=== PATIENT | female | born 1960 | race Caucasian/White ===

== ENCOUNTER 2020-04-24 03:45 | Inpatient (IN) | payer OTHER ==
[~2020-04-24] VITALS: Ht 170.2 cm; Wt 88.1 kg
[2020-04-24] MEDS ORDERED: METOPROLOL TART25 MG PO (04:24)
[2020-04-24] MEDS ORDERED: SERTRALINE HCL100 MG PO (04:25)
[2020-04-24] MEDS ORDERED: OLANZAPINE5 M1 PO (04:25)
--- NOTE | 2020-04-24 04:33 | NUR ---
Patient arrived from [facility]. Patient has a history of schizophrenia, anxiety, and depression. Patient is not a voluntary admission. Affidavit for 96 hour hold is in the chart. Affidavit states that patient is a danger to self. A second affidavit states that the patient was trying to cut her hair with kitchen knives and walked 5 miles in 90 degree weather and became confused and disoriented. Patient states that she does not want to be here. Patients assessment shows no signs of acute distress. Patients vital signs show hypertension 160/99, temp 97.8, pulse 104, SpO2 95% and respiratory rate 19. We will continue to monitor per hospital protocol.
[2020-04-24 05:40] VITALS: BP 160/99
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
--- NOTE | 2020-04-24 18:20 | NUR ---
PT ANSWERS ORIENTATION QUESTIONS APPROPRIATELY. SLOW TO ANSWER. PT APPEARS TO HAVE DIFFICULTY PROCESSING INFORMATION. PT ALSO WILL PAUSE WHILE SPEAKING AND LOOK TO SIDE IF LISTENING TO SOMEONE. DENIES HALLUCINATIONS. PT AMBULATES WITH STEADY BALANCED GAIT. PT IN ROOM FOR MOST OF DAY. OUT OF ROOM FOR BREAKFAST, DINNER, AND AFTER DINNER THIS EVENING. REFUSED LUNCH TODAY. PT DOES NOT INTERACT WITH OTHER PATIENTS OR STAFF, DID NOT PARTICIPATE IN GROUP TODAY.
[2020-04-24 19:54] VITALS: BP 148/89
--- NOTE | 2020-04-25 05:03 | NUR ---
Assumed care of pt @ 1900. pt calm et cooperative with pleasant demeanor this shift. Took medications whole without difficulty. Ambulates the halls ad ruma with steady gait. VSWNL. Health assessment with no abnormalities noted at present time. EKG et Troponin level done this shift per physician order. Seen by DIETITIAN hospitalist this shift. Socialized with peers in dayroom until HS. Denies SI/HI at present time. Currently resting in bed with eyes closed. Will continue to monitor per protocol.
[2020-04-25 09:13] VITALS: BP 147/88
--- NOTE | 2020-04-25 11:14 | NUR ---
Assumed care 0700. Patient alert, oriented x 4. Goal is to read magazine in dayroom. No complaints. She wants to know about the EKG irregularity and if shewill need an x-ray. (echo has been ordered.) Denies complaints of pain. Denies SI/HI/AH/VH. Very conversant with staff and peers. Sys she is feeling much better than when she came in and that she was changed from Zoloft to Olanzapine.
--- NOTE | 2020-04-25 11:38 | EKG ---
[facility] [place] [address] ELECTROCARDIOGRAM REPORT Name: ARVIN SINGH Room #: 52[facility] ADM IN M.R.#: [id number] Admission: 04/24/20 Attend Phys: Harlan Queen DO Discharge: Date of : 60 Report #: [id number] THIS REPORT FOR: cc: [facility] - Clinic physician unknown [facility] - Clinic physician unknown Edwin Emery MD ~ THIS REPORT FOR: //name// [facility] Test Date: 2020-04-24 Test Time: 23:18:22 Pat Name: ARVIN SINGH Department: Room: [facility] A Gender: F Hospital Admitting Clerk: NGHIA Beard : 1960 Requested By: Harlan Queen Order Number: [id number] MD: Edwin Emery Measurements Intervals [place] Rate: 82 P: 54 MT: 171 QRS: 20 QRSD: 144 T: 37 QT: 433 QTc: 506 Interpretive Statements Sinus rhythm Left bundle branch block No previous ECG available for comparison Electronically Signed On 04-25-2020 11:38:22 CDT by Edwin Emery [email or web address] <ELECTRONICALLY SIGNED> By: Edwin Emery MD 04/25/20 1138 Edwin Emery MD /EPI
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
--- NOTE | 2020-04-25 15:51 | NUR ---
Patient attending S.W. group. No reported complaints. Conversation thus far appropriate with RN. In and out of bed during this afternoon. No offered complainats.
[2020-04-25 20:12] VITALS: BP 129/76
--- NOTE | 2020-04-25 22:56 | NUR ---
PT RESTING IN BED UPON ARRIVAL TO SHIFT. PT AWAKENED AND WENT TO WATCH TV WITH FEMALE PEERS. PT INTERACTING WITH FEMALE PEERS BUT IN A COW TESTER MANNER. PT COMPLIANT WITH MEDS, SMILING GOOD EYE CONTACT. STEADY GAIT.
[2020-04-26 07:35] VITALS: BP 158/72
--- NOTE | 2020-04-26 15:59 | NUR ---
Assumed care 0700. Would stare blankly at RN when asked questions about if she was having hallucinations and not answer the questions. When she was asked if she felt fearful being here she would not answer the question. She does not report any pain issues.
[2020-04-26 20:26] VITALS: BP 159/122
--- NOTE | 2020-04-27 03:35 | NUR ---
ASSUMED CARE OF PT AT 1900HRS. PT AOX2-3 AND UP AD INGA. ASSESSMENT CHARTED. PT SPOKE WITH THIS EVENING. PT TOOK ALL MEDS WHOLE. PT WAS ABLE TO GET COMFORTABLE AND SLEEP PART OF THE SHIFT. VSS AND NO S/S OF ACUTE DISTRESS. WILL CONTINUE TO MONITOR.
[2020-04-27 07:44] VITALS: BP 154/84
--- NOTE | 2020-04-27 09:01 | NUR ---
QUIET AND WITHDRAWN SO FAR THIS SHIFT. FLAT AFFECT AND MINIMAL VERBAL RESPONSES TO INQUIRES FROM STAFF DURING AM ASSESSMENT. DID REPORT SOME ABDOMINAL [id number] BREAKFAST-REFUSES OFFERS OF MYLANTA/ZOFRAN BUT DID TAKE DIET SPRITE WITH REPORTED IMPROVEMENT IN 30 MINUTES. NO NOTED INTERACTION WITH PEER GROUP AND RETURNED IMMEDIATLY TO ROOM AFTER EATING. DENIES SI/SH-NO NOTED OR REPORTED A/V HALLUCINATIONS OR PSYCHOSIS ALTHOUGH DOES PRESENT INTERNALLY PREOCCUPIED.
--- NOTE | 2020-04-27 10:51 | NUR ---
SW called pt's spouse kevin to set up a family meeting for Monday. Left a VM
[2020-04-27 20:26] VITALS: BP 159/95
[2020-04-28 09:05] VITALS: BP 148/93
--- NOTE | 2020-04-28 13:29 | NUR ---
SLIGHT INCREASE IN CONVERSATION/VERBALIZATION WITH STAFF AND PEERS-REMAINS LARGLEY WITHDRAWN TO ROOM BUT DID COME OUT FOR PM GROUP WITH PROMPTING-DID NOT ATTEND AM GROUP REPORTING FATIGUE D/T ROOMMMATE BEING AWAKE MOST OF THE NIGHT ABD GOING THROUGH HER BELONGINGS. AFFECT REMAINS FLAT. DENIES SI/SH/HI. DENIES A/V HALLUCINATIONS BUT CONTINUES TO APPEAR PREOCCUPIED AND WITHDRAWN, DID ASK FOR CLEAN LINEN AND TO SHAVE HER LEGS-NEATLY GROOMED AND DRESSED. COMPLIENT WITH MEDICATIONS-CB C/O PAIN/DISCOMFORT. GAIT STEADY
--- NOTE | 2020-04-28 15:46 | NUR ---
Lily and Dr Queen met with family via phone. Pt's brother, spouse, son and OMID were presnet. they described this pt as ' having episodes" when off of her meds and when she gets stressed." . It was agreed that this pt will stay inpt at [facility] until Monday. Lily will set up f/u with [facility] psych services for next week. LILY ended the call and Dr queen left this workers office. LILY attmpeted to open the office door to allow pt to leave and she slowly pushed the door closed. When Lily attempted to redirect her and remind her of the imprtance of inpt psych she seemed to agree, but when this worker attmepted to open the door again, the pt stood up and continued to say " i just want to go home," but was unable to be redirected. This pt continues to have a flat affect and monotone speech, she stood directly in front of this worker and maintained eye contact. Pt began to mimic this workers stance and moved very closely in an intimidating fashion. Lily requested that pt sit in her own chair and this worker sat behind the desk. Lily then removed any pens or objects from the desk, and this pt pulled her chair closer to the desk. At this time the SW called the nurses station and requested assistance immediately. Within moments Dr queen arrived and pt left this office peacefully.
--- NOTE | 2020-04-28 18:30 | NUR ---
SUMMONED TO SW OFFICE AT APPROX 1530. SW REPORTED TO STAFF THAT PT HAD BECOME THREATNING TO HER AFTER FAMILY MEETING AND ATTEMPTED TO BLOCK SW EVIT FROM OFFICE AND WAS EXHIBITING THREATNING BEHAVIOR. PT ESCORTED TO HER ROOM BY NURSING STAFF AND WAS COOPERATIVE WITH SITTING QUIETLY ON BED. INTENSE STARING EYE CONTACT AND ANGRY FACIAL EXPRESSION.HOLDING ARMS DOWN BY SIDEW WITH FISTS CLENCHED. WHEN ASKED QUESTIONS ABOUT WHAT WS GOING ON OR HOW SHE WAS FEELING STARED INTENTLY FOR 2-3 MINUTES BEFORE STATING SHE WAS UNHAPPY WITH FAMILY MEETING HAD GONE AND SHE WANTED TO GO HOME. HYPERVIGILANT IN [place] WATCHING PEERS INTENSLY WITH ANGRY FACIAL EXPRESSION. AT ONE POINT FOLLOWED A FEMALE PT IN [facility]. GE[place]ON 20MG GIVEN IM -WS COOPERATIVEW WITH INJECTION
[2020-04-28 19:35] VITALS: BP 151/77
--- NOTE | 2020-04-29 04:34 | NUR ---
04-28-20 CARE TRANSFERRED AT 1914 OBSERVED PT SITTING ON BED WITH EYES OPEN. 2104 PT AAOX3, VSS, RR EVEN AND NONLABORED ON RA. PT DENIES ANY PAIN AND SI/HI. PT PRESENTS TENSE AND AGITATED, BUT COOPERATIVE DURING NURSING ASSESSMENT. PT HAD NO DIFFICULTIES WITH MEDICATION AND IS COMPLIANT. LATER PT REPORTED SHE IS UNHAPPY WITH FAMILY, BUT STOPPED CONSERVATION ABRUPTLY. THEN STATED "SHE DOES NOT WANT TO DISCUSS". PT BED WAS ADJUSTED FOR COMFORT. NO S/S OF ACUTE EMOTIONAL OR MEDICAL DISTRESS NOTED, WILL CONTINUE TO MONITOR PER [facility] PROTOCOL.
[2020-04-29 07:26] VITALS: BP 151/76
[2020-04-29 09:00] LABS: URINE BILIRUBIN NEGATIVE (Negative); URINE BLOOD NEGATIVE (Negative); URINE CLARITY CLEAR; URINE COLOR YELLOW; URINE GLUCOSE-RANDOM* NEGATIVE (Negative); URINE KETONES NEGATIVE (Negative); URINE NITRITE-REFLEX NEGATIVE (Negative); URINE PROTEIN (DIPSTICK) NEGATIVE (Negative); URINE UROBILINOGEN 0.2 E.U./dl (0.2-1.0)
[2020-04-29 09:01] LABS: URINE LEUKOCYTES-REFLEX 1+ (Negative)
--- NOTE | 2020-04-29 11:14 | NUR ---
04/29/20 DAY SHIFT-PATIENT WAS AWAKE IN BED WHEN CARE ASSUMED. SHE LATER CAME OUT FOR BREAKFAST, APPETITE GOOD, CONSUMED 100%. PATIENT WENT STRAIGHT BACK TO BED, MORNING MEDICATION GIVEN AT BEDSIDE, WELL TOLERATED. PATIENT CHOOSE NOT TO PARTICIPATE IN MORNING GROUP, STATES AFTER TAKING A SHOWER, AND SHAVE SHE WILL GO TO GROUPS. PATIENT DENIES SUICIDAL/HOMICIDAL IDEATION, DENIES ANXIETY. PATIENT RATED DEPRESSION 4/10. AFFECT IS FLAT/BLUNTED, MOOD IS DEPRESSED. PATIENT DID GET A SHOWER, CONTINUE TO ISOLATE SELF TO ROOM. PATIENT DENIES HAVING PHYSICAL PAIN, NO SIGN OF ACUTE DISTRESS NOTED AT THIS TIME, WILL MONITOR FOR SAFETY.
[2020-04-29 11:26] LABS: BACTERIA-REFLEX 1-9 Few /HPF (None Seen); CASTS None Seen /LPF (None Seen); CRYSTALS None Seen /LPF (None Seen); MUCUS 0-3 Light strn/LPF (None Seen); SQUAMOUS >10 Many /LPF (0-3); URINE RBC None Seen /HPF (0-2); URINE WBC-REFLEX 0-5 Rare /HPF (0-5)
[2020-04-29 20:00] VITALS: BP 140/74
[2020-04-29 20:10] VITALS: BP 114/66
[2020-04-29 20:12] VITALS: BP 159/100
--- NOTE | 2020-04-30 00:29 | NUR ---
PATIENT HAS BEEN IN ROOM ALL NIGHT. SHE HAS FLAT AFFECT. SHE IS SLOW TO RESPOND TO QUESTIONS. SHE DID ASK THIS NURSE TO PLEASE SIT WITH HER FOR AWHILE. SHE SPOKE WITH HER BY PHONE TONIGHT. SHE DENIES SI/HI/AVH. SHE DID ASK IF SHE WAS GOING TO BE GOING HOME BY MONDAY. I READ DR MONTERROSO AND TOLD HER THAT IT TENTAVILY LOOKS LIKE MONDAY SHE MAY BE LEAVING. SHE WAS SATISFIED WITH THIS. SHE TOOK HER MEDS WHOLE WITH WATER. SHE DENIES PAIN. WE TALKED A LITTLE ABOUT HER KIDS AND HOME LIFE. SHE FEELS SHE IS READY TO GO HOME AND STATES HER AND [facility] ARE GOOD SUPPORT SYSTEMS FOR HER. PT WAS PLEASANT AND COOPERATIVE. CONTINUING TO MONITOR.
--- NOTE | 2020-04-30 09:03 | NUR ---
Lily called Katie ALBERTO and reported the d/c plans. Pt's follow up will be at [facility] in [facility] [phone]. LILY will fax the d/c summary and orders to [phone]. Lily will provide a handout with the instructions for the walk in clinic
[2020-04-30 09:17] VITALS: BP 145/82
--- NOTE | 2020-04-30 16:57 | NUR ---
Alert and orientated X4. States she is looking forward to going home tomorrow. No s/o distress. Converses with peers and staff, attending groups. Ambulates with regular, steady gait. Breath sounds clear. Reg HR auscultated. Color pink with brisk capillary refill. Independent with voiding. Active bowel sounds over soft, rounded abdomen. Declined scheduled laxative, states she had BM yesterday.
[2020-04-30 20:46] VITALS: BP 149/83
--- NOTE | 2020-05-01 06:02 | NUR ---
Assumed care of pt @ 1900. Pt calm et cooperative this shift. Took medications whole without difficulty. Ambulates the halls ad ruma with steady gait. VSWNL. Health assessment with no abnormalities noted at present time. Socialized with peers in dayroom for a bit of time prior to HS. Denies SI/HI at present time. Currently resting in bed with eyes closed. Will continue to monitor per protocol.
[2020-05-01 07:46] VITALS: BP 128/70
[2020-05-01] MEDS ORDERED: SERTRALINE HCL50 MG PO (09:33)
--- NOTE | 2020-05-01 09:33 | NUR ---
0700 ASSUMED CARE OF PATIENT, PATIENT IN ROOM AT THAT TIME. PATIENT OUT TO DAYROOM FOR BREAKFAST. COMMAND AND CONTROL SPECIALIST TO ROOM TO GIVE MEDICATION. PATIENT LYING IN BED. MEDICATIONS TAKEN WHOLE WITHOUT DIFFICULTY.
[2020-05-01] MEDS ORDERED: ZYPREXA 5 MG TAB5 M1 PO (09:34)
[2020-05-01] MEDS ORDERED: COLACE100 MG PO (09:35)
--- NOTE | 2020-05-01 09:42 | NUR ---
Sw faxed orders and summary to [facility]. Family is willing to try the clinic but would prefer an office psychiatrist. Sw advised them to reach out to their insurance for a referral.
[2020-05-01 10:56] VITALS: BP 128/70
--- NOTE | 2020-05-01 11:27 | NUR ---
PATIENT SITTING IN ROOM QUIETLY. PHYSICIAN ALLERGIST IMMUNOLOGIST IN ROOM TO GIVE DC INSTRUCTIONS. PATIENT VOICED UNDERSTANDING. PATIENT CALLS TO CLARIFY BEING PICKED UP PATIENT IS GETTING ANXIOUS TO GO HOME. PATIENT DENIES PAIN OR NEEDS.
--- NOTE | 2020-05-01 13:25 | NUR ---
113 PATIENT DISCHARGED AT THAT TIME. PATIENT AMB TO SECURITY TO INSPECTION SUPERVISOR BELONGINGS THEN TO VEHICLE WHERE SPOUSE WAS WAITING. BELONGING IN HAND WITH DC INSTRUCTIONS. PATIENT ACCOMPANIED BY HEMODIALYSIS TECHNICIAN AND STAFF MEMBER.
== END 2020-05-01 12:00 | disposition home or self-care (01) | DRG 885 ==
LOC: SBH
PROVIDERS: ADMIT Psychiatry & Neurology Psychiatry; ATTEND Psychiatry & Neurology Psychiatry
DX: F20.9 Schizophrenia, unspecified (principal); F29 Unspecified psychosis not due to a substance or known physiological condition; E03.9 Hypothyroidism, unspecified; F41.9 Anxiety disorder, unspecified; F32.9 Major depressive disorder, single episode, unspecified; E78.00 Pure hypercholesterolemia, unspecified; I10 Essential (primary) hypertension; K21.9 Gastro-esophageal reflux disease without esophagitis; I44.7 Left bundle-branch block, unspecified; Z79.899 Other long term (current) drug therapy
CPT/HCPCS: 10880